=== PATIENT | female | born 1940 | race Caucasian/White ===

== ENCOUNTER → 2016-08-20 17:02 | Outpatient (CLI) | payer MEDICARE, BC ==
[2012-04-13 06:34] VITALS: BMI 29.7
== END | disposition home or self-care (01) ==
LOC: D.MAMMO 12:00
DX: C50.812 Malignant neoplasm of overlapping sites of left female breast (principal)

== ENCOUNTER → 2016-10-12 08:34 | Outpatient (CLI) | payer MEDICARE, BC ==
[~2016-10-12 08:34] MED LIST: CELEXA10 MG PO; HYDROCODONE-APA1 TAB PO; PHENERGAN25 M1 PO; PLAQUENIL200 MG PO; REGLAN10 MG PO; VITAMIN D31000 UNI2 PO; ZANTAC150 MG PO
== END | disposition home or self-care (01) ==
LOC: D.US 08:34
DX: R10.9 Unspecified abdominal pain (principal)

== ENCOUNTER 2016-12-03 05:07 | Day surgery (SDC) | payer MEDICARE, BC ==
[~2016-12-03] VITALS: Ht 160 cm; Wt 73.6 kg
[2016-12-03] VITALS (9 sets, daily range): BP systolic 107–156; BP diastolic 47–67; Ht 160 cm; Wt 73.6 kg
[~2016-12-03 05:07] MED LIST changes: -HYDROCODONE-APA1 TAB PO; -PHENERGAN25 M1 PO; -REGLAN10 MG PO
[2016-12-03 06:56] LABS: BASOPHILS 0.4 % (0-2); EOSINOPHILS 2.1 % (0-7); HEMATOCRIT 40.4 % (36.0-48.0); HEMOGLOBIN 13.1 g/dL (12-16); IMMATURE GRANULOCYTES 0.2 % (0-5); LYMPHOCYTES 31.8 % (15-50); MCH 29.6 pg (26.0-34.0); MCHC 32.4 g/dL (31.0-37.0); MCV 91.2 fL (80.0-100.0); MEAN PLATELET VOLUME 10.3 fL (7.4-10.4); NEUTROPHILS 55.5 % (40-80); PLATELET COUNT 205 10x3/uL (130-400); RBC 4.43 10x6/uL (4.00-5.40); RDW 13.4 % (11.5-14.5); WBC 4.8 10x3/uL (4.8-10.8)
[2016-12-03 07:29] LABS: INR 0.99 (0.85-1.17); PROTIME 12.9 SECONDS (11.6-15.0)
[2016-12-03 07:42] LABS: ANION GAP 12.1 mmol/L (8-16); CARBON DIOXIDE 25.7 mmol/L (21.0-32.0); CREATININE - SERUM 1.2 mg/dL (0.6-1.3); POTASSIUM - SERUM 3.8 mmol/L (3.5-5.1)
--- NOTE | 2016-12-03 08:40 | NUR ---
PT ON GEL PAD AND SAFETY SLING UNDER BUTTOCKS
--- NOTE | 2016-12-03 10:21 | NUR ---
RECIEVED REPORT FROM NOAH BEST IN RECOVERY.
--- NOTE | 2016-12-03 12:35 | NUR ---
PATIENT IS AWAKE, ALERT AND ORIENTED X'S 4. FAMILY AT BEDSIDE. ALL DENY NEEDS.
--- NOTE | 2016-12-03 18:45 | NUR ---
PT RESTING WELL EYES CLOSED SISTER AT SIDE CALL LIGHT IN REACH
--- NOTE | 2016-12-03 19:10 | NUR ---
BEDSIDE REPORT RECEIVED AND CARE OF PT ASSUMED. PT LYING IN SEMI ISLAS'S POSITION VISITING WITH FAMILY MEMBER. IV IN RIGHT FA PATENT WITH NS INFUSING AT 125 ML / HR. DRESSINGS ON ABDOMEN CLEAN AND DRY. SCD'S IN USE. WILL MONITOR CLOSELY FOR NEEDS.
--- NOTE | 2016-12-03 19:15 | NUR ---
DISCUSSED INSTANT PRINT OPERATOR ORDER WITH PT AND OFFERED TO START IF PAIN BECAME MORE SEVERE...DECLINES AT THIS TIME.
--- NOTE | 2016-12-03 21:00 | NUR ---
NO HS MEDICATIONS....PT STATES PAIN AT LEVEL 3-4/10....DECLINES OFFER OF MUSIC AUTOGRAPHER AT THIS TIME.
--- NOTE | 2016-12-03 22:17 | NUR ---
SET UP DUPLICATION SPECIALIST / DILAUDID PER ORDER, PER PT REQUEST FOR INCREASING PAIN AT LEVEL 6/10. TEACHING COMPLETE.
--- NOTE | 2016-12-03 22:53 | NUR ---
PT RESTING QUIETLY AT THIS TIME WITH EYES CLOSED AND UNLABORED BREATHING. SISTER IS AT BEDSIDE.
[2016-12-04] VITALS: BP 120/51
[2016-12-04 04:00] VITALS: BP 118/62
[2016-12-04 05:13] LABS: BASOPHILS 0 % (0-2); EOSINOPHILS 0 % (0-7); HEMATOCRIT 36.2 % (36.0-48.0); HEMOGLOBIN 11.8 g/dL (12-16); IMMATURE GRANULOCYTES 0.2 % (0-5); LYMPHOCYTES 9.6 % (15-50); MCH 29.7 pg (26.0-34.0); MCHC 32.6 g/dL (31.0-37.0); MCV 91.2 fL (80.0-100.0); MEAN PLATELET VOLUME 10.4 fL (7.4-10.4); MONOCYTES 7.1 % (2-11); NEUTROPHILS 83.1 % (40-80); PLATELET COUNT 199 10x3/uL (130-400); RBC 3.97 10x6/uL (4.00-5.40); RDW 13.4 % (11.5-14.5)
[2016-12-04 05:20] LABS: WBC 9.2 10x3/uL (4.8-10.8)
[2016-12-04 05:29] LABS: ANION GAP 11.2 mmol/L (8-16); CALCIUM 8.6 mg/dL (8.5-10.1); CARBON DIOXIDE 25.4 mmol/L (21.0-32.0); CREATININE - SERUM 0.9 mg/dL (0.6-1.3)
[2016-12-04 05:30] LABS: POTASSIUM - SERUM 4.6 mmol/L (3.5-5.1)
--- NOTE | 2016-12-04 07:30 | NUR ---
PT ASSESSMENT COMPLETE AWAKE AND ALERT ORINETD X 3 NO DISTRESS NTOED LAP SITES X 5 WITH BANDAID IN TACT TENDER TO PALPATION PT TO HAVE GASTROGRAFFIN STUDY TODAY. THEN POTENTIAL DISCHARGE.
[2016-12-04 09:19] VITALS: BP 101/44
--- NOTE | 2016-12-04 10:00 | NUR ---
IN BED AT THIS TIME WITH FAMILY AT BEDSIDE. AWAKE AND ALERT WITH RESPIRATIONS EVEN AND NON LABORED. PT READY TO GO HOME SHE STATES. SCD'S ON AND IN WORKING ORDER. CALL LIGHT IN REACH, WILL CONTINUE WITH PLAN OF CARE.
[2016-12-04] MEDS ORDERED: HYDROCODONE-APA1 TAB PO (10:29)
[2016-12-04] MEDS ORDERED: PHENERGAN25 M1 PO (10:29)
[2016-12-04] MEDS ORDERED: REGLAN10 MG PO (10:30)
--- NOTE | 2016-12-04 11:00 | NUR ---
PT GIVEN DISCHARGE INSTRUCTIONS EXPRESSED UNDERSTANDING OF SAID INSTRUCTIONS AND PERIPHERAL IV DISCONTINUED.
--- NOTE | 2016-12-04 11:45 | NUR ---
SKY PER ORDER GIVEN PRIOR TO DISCHARGE FOR RIDE HOME LEFT VIA WHEELCHAIR WITH VOULENTEER STAFF
--- NOTE | 2016-12-04 12:59 | OP ---
PATIENT NAME: RABIA SOLARES MEDICAL RECORD: [id number] :38 LOCATION:[facility] [id number] ADMISSION DATE: SURGEON: HUAN PABLO MD DATE OF OPERATION: 12/03/2016 PREOPERATIVE DIAGNOSES: 1. Hiatal hernia. 2. Gastroesophageal reflux disease. 3. West esophagus. POSTOPERATIVE DIAGNOSES: 1. Hiatal hernia. 2. Gastroesophageal reflux disease. 3. West esophagus. PROCEDURE: Laparoscopic hiatal hernia repair with [place] fundoplication. SURGEON: Huan Pablo MD REPORT OF PROCEDURE: The patient's abdomen was prepped and draped in sterile fashion. A Veress needle was inserted in the left upper quadrant and the abdomen was insufflated. An 11-mm Visiport trocar was inserted in the midline just above the umbilicus. The Veress needle was inspected and there was no sign of any injury to bowel or surrounding structures. The Veress needle was then removed. In its place, a 12-mm trocar was placed in the left subcostal region, a 5-mm trocar was placed in the epigastrium, a 5-mm trocar was placed in the right lateral subcostal region and a 5-mm trocar was placed in the left lateral abdomen. Approximately 3/4 of the stomach was noted to be up in the chest through a large hiatal hernia defect. We began our dissection of the lesser omentum and this was taken down using Harmonic scalpel. As we approached the right side of the right ayden, we were able to free up the edge of the peritoneum and entered the space around the hernia sac. This hernia sac was dissected free from the thoracic cavity and we went as far anteriorly and posteriorly as possible. Once we had this dissected out, then we approached the greater curvature of the stomach and took down the short gastric using Harmonic scalpel. We continued this to the left side of the right ayden. Again, we got behind the hernia sac, we were able to release the hernia sac from its thoracic attachments. At this point, the entire hernia sac was freed up and the stomach was placed back into the abdominal cavity. The esophagus itself appeared to have no sign of any injury. The hernia sac was dissected free from its anterior aspect to facilitate appropriate placement of our wrap. We then reapproximated the esophageal hiatus using interrupted 0 Polydeks times 4. There was good approximation of the tissue. We then performed a posterior 360 degree wrap at the fundus of the stomach around the distal esophagus. This was performed with interrupted 0 Polydeks times 3. The top and the bottom sutures incorporated a bite of the esophagus. At this point, the abdomen was irrigated out with normal saline and there was no sign of any active bleeding. The liver retractor, which had been holding up the left lobe of the liver was then removed. The 11 and 12 mm trocar site fascias were then closed with interrupted 0 Vicryls using a Sanjay-Sharon suture passer device. The ports and insufflation were then removed. The wounds were then infused with a total of 20 mL of 0.25% Marcaine with epinephrine. The skin incisions were all closed with subcutaneous 5-0 Monocryl and dressed appropriately. COMPLICATIONS: None. OPERATIVE REPORT [id number] RABIA SOLARES CONDITION: Stable. ANESTHESIA: General endotracheal and local. BLOOD LOSS: Minimal. TRANSINT:[id number] Voice Confirmation ID: [id number] DOCUMENT ID: [id number] HUAN PABLO MD at 1259 CC: SERGIO HEBERT DO [id number] DICTATION DATE: 12/03/16 0943 SPIRAL GEAR GENERATOR: 12/03/16 1704 [facility] [address] [place] [address]
== END 2016-12-04 11:45 | disposition home or self-care (01) ==
LOC: D.OPS 05:07 → D.MS 05:07 → D.OPS 07:30 → D.PAN 07:30 → D.MS 10:02 → D.OPS 12-04 11:45
PROVIDERS: Anesthesiology; Surgery
DX: K21.9 Gastro-esophageal reflux disease without esophagitis (principal); K22.70 Barrett's esophagus without dysplasia

== ENCOUNTER → 2017-11-18 17:17 | Outpatient (CLI) | payer MEDICARE, BC ==
[2016-12-03 10:51] VITALS: BMI 28.7
[~2017-11-18 17:17] MED LIST changes: +HYDROCODONE-APA1 TAB PO; +PHENERGAN25 M1 PO; +REGLAN10 MG PO
== END | disposition home or self-care (01) ==
LOC: D.MAMMO 09:30
DX: Z85.3 Personal history of malignant neoplasm of breast (principal)

== ENCOUNTER → 2018-06-13 12:25 | Outpatient (CLI) | payer MEDICARE, BC ==
[2016-12-03 10:51] VITALS: BMI 28.7
== END | disposition home or self-care (01) ==
LOC: D.MRI 12:25
DX: R42 Dizziness and giddiness (principal)

== ENCOUNTER → 2018-06-29 10:12 | Outpatient (CLI) | payer MEDICARE, BC ==
[2016-12-03 10:51] VITALS: BMI 28.7
== END | disposition home or self-care (01) ==
LOC: D.MRI 10:12
DX: M47.892 Other spondylosis, cervical region (principal); M54.12 Radiculopathy, cervical region

== ENCOUNTER 2019-04-28 09:00 | Outpatient (CLI) | payer MEDICARE, BC ==
[2016-12-03 10:51] VITALS: BMI 28.7
== END 2019-04-28 10:00 | disposition home or self-care (01) ==
LOC: D.MAMMO 09:00
PROVIDERS: ATTEND Internal Medicine Hematology & Oncology
DX: C50.812 Malignant neoplasm of overlapping sites of left female breast (principal)